=== PATIENT | male | born 1930 | race African-American/Black ===

== ENCOUNTER 2017-05-25 15:00 | Inpatient (IN) | payer MEDICARE, MEDICAID ==
[~2017-05-25] VITALS: Ht 182.9 cm; Wt 87.6 kg
[~2017-05-25 15:00] MED LIST: METO-396 PO; ROSU20TA PO
[2017-05-25 16:43] LABS: BASOPHILS % 0.8 % (0.0-2.0); EOSINOPHILS % 0.7 % (0.0-5.0); HEMATOCRIT. 30.6 % (42.0-52.0); HEMOGLOBIN. 10.2 g/dL (14.0-18.0); LYMPHOCYTES % 32.4 % (20.0-50.0); MEAN CORPUSCULAR HEMOGLOBIN 35.9 pg (28.0-32.0); MEAN CORPUSCULAR VOLUME 107.9 fL (80.0-94.0); MEAN PLATELET VOLUME 8.2 fl (7.4-10.4); MONOCYTES % 9.8 % (2.0-8.0); NEUTROPHILS % 56.3 % (40.0-76.0); PLATELET 192 x1000/uL (130-400); RED BLOOD CELL COUNT 2.83 mill/uL (4.7-6.1); RED CELL DISTRIBUTION WIDTH 14.5 % (11.6-14.6)
[2017-05-25 16:45] LABS: CHLORIDE 108 mEq/L (98-107)
[2017-05-25 16:57] LABS: CARBON DIOXIDE 24 mEq/L (21-32); TROPONIN I < 0.02 ng/mL (0.00-0.04)
[2017-05-25 22:30] VITALS: BP 141/81
[2017-05-25] MEDS ORDERED: ROSU20TA28 PO (23:31)
[2017-05-25] MEDS ORDERED: TAMS0.4C31 PO (23:31)
[2017-05-25] MEDS ORDERED: APIX5TAB PO (23:31)
[2017-05-26] VITALS: BP 138/77
[2017-05-26] MEDS ORDERED: DOCUSATE SODIUM 250MG CAPSULE PO PRN
[2017-05-26] MEDS ORDERED: ACETAMINOPHEN 325MG TABLET PO PRN
[2017-05-26] MEDS ORDERED: ROSUVASTATIN CALCIUM 20 MG PO SCH
[2017-05-26 01:36] LABS: CREATINE KINASE 217 IU/L (39-308); CREATINE KINASE MB FRACTION 2.9 ng/mL (0.5-3.6); TROPONIN I < 0.02 ng/mL (0.00-0.04)
[2017-05-26 04:00] VITALS: BP 136/79
[2017-05-26 08:00] VITALS: BP 133/58
[2017-05-26] MEDS: APIXABAN 5 MG TABLET PO SCH ×2 (08:58→18:24)
[2017-05-26] MEDS: METOPROLOL TARTRATE 25MG TABLET PO SCH ×2 (08:58→21:00)
[2017-05-26] MEDS ORDERED: MEDICATION NOT ON FORMULARY EA (Metoprolol Succinate 1 TAB) PO SCH (09:00)
[2017-05-26 12:00] VITALS: BP 124/73
[2017-05-26 16:00] VITALS: BP 114/78
[2017-05-26 20:00] VITALS: BP 117/69
[2017-05-26] MEDS ORDERED: TAMSULOSIN HCL 0.4MG SR CAPSULE PO SCH (21:00)
[2017-05-26] MEDS: ATORVASTATIN CALCIUM 40MG TABLET PO SCH ×2 (22:41)
[2017-05-27] VITALS: BP 134/71
[2017-05-27 04:00] VITALS: BP 134/71
[2017-05-27 08:00] VITALS: BP 140/75
[2017-05-27] MEDS: METOPROLOL TARTRATE 25MG TABLET PO SCH (09:41)
[2017-05-27] MEDS: APIXABAN 5 MG TABLET PO SCH (09:41)
[2017-05-27 12:00] VITALS: BP 118/76
== END 2017-05-27 16:00 | disposition left against medical advice (07) | DRG 866 ==
LOC: ER 15:37 → 5WST 17:54 → ENRESERV 21:04
PROVIDERS: ADMIT Internal Medicine; ATTEND Internal Medicine
DX: B02.8 Zoster with other complications (principal); I48.91 Unspecified atrial fibrillation; S09.90XA Unspecified injury of head, initial encounter; F07.81 Postconcussional syndrome; W19.XXXA Unspecified fall, initial encounter; B02.21 Postherpetic geniculate ganglionitis; H40.9 Unspecified glaucoma; I10 Essential (primary) hypertension; Z96.649 Presence of unspecified artificial hip joint; M19.90 Unspecified osteoarthritis, unspecified site; Z79.899 Other long term (current) drug therapy; Z90.49 Acquired absence of other specified parts of digestive tract; Z95.0 Presence of cardiac pacemaker; Z53.21 Procedure and treatment not carried out due to patient leaving prior to being seen by health care provider
CPT/HCPCS: 36415; 80053; 82550; 82553; 83735; 84484; 85025; 93005; 93970; 99285